=== PATIENT | female | born 1980 | race Two or more races ===

== ENCOUNTER 2024-09-19 08:30 | Emergency (ER) | payer OTHER ==
[~2024-09-19] VITALS: Ht 170.2 cm; Wt 85.3 kg
[2024-09-19] MEDS ORDERED: COZAAR25 MG PO (09:05)
[2024-09-19] MEDS ORDERED: SYNJARDY 12.5-1 EACH PO (09:05)
[2024-09-19] MEDS ORDERED: ROSUVASTATIN CA10 MG PO (09:05)
[2024-09-19 10:25] LABS: BASO % 0.3 % (0.1-1.2); EOS # 0.03 (0.04-0.54); EOS % 0.1 % (0.7-7.0); HEMOGLOBIN 14.8 g/dL (11.2-15.7); LYMPH # 1.35 (1.18-3.74); LYMPH % 4.9 % (19.3-53.1); MEAN CORPUSCULAR HEMOGLOBIN 29.3 pg (25.6-32.2); MONO % 8.7 % (4.7-12.5); NEUT # 23.56 (1.56-6.13); NEUT % 85.3 % (34.0-71.1); PLATELET COUNT 415 K/uL (163-369); RED BLOOD COUNT 5.05 M/uL (3.93-5.22); RED CELL DISTRIBUTION WIDTH 13.6 % (11.6-14.4)
[2024-09-19 11:34] LABS: COVID-19 AG NEGATIVE (NEGATIVE); INFLUENZA A AG NEGATIVE (NEGATIVE)
[2024-09-19] MEDS ORDERED: CEFTRIAXONE SODIUM 2,000 MG VIAL IV ONE (13:00)
[2024-09-19] MEDS ORDERED: CEFTRIAXONE SODIUM 2,000 MG VIAL ONE (13:02)
[2024-09-19] MEDS ORDERED: AMOX-CLAV 875-1 EACH PO (14:39)
[2024-09-19 16:15] LABS: ALBUMIN 3.7 gm/dL (3.4-5.0); BILIRUBIN TOTAL 0.72 mg/dL (0.3-1.2); CALCIUM 9.3 mg/dL (8.5-10.1); CREATININE SERUM 0.86 mg/dL (0.55-1.02); GFR 71.68; POTASSIUM 4.23 mEq/L (3.5-5.1); TOTAL PROTEIN 8.7 gm/dL (6.4-8.2)
== END 2024-09-19 18:15 | disposition home or self-care (01) ==
LOC: ER 08:44
PROVIDERS: Preventive Medicine Public Health & General Preventive Medicine
DX: J02.8 Acute pharyngitis due to other specified organisms (principal); B96.89 Other specified bacterial agents as the cause of diseases classified elsewhere; Z20.822 Contact with and (suspected) exposure to COVID-19; I10 Essential (primary) hypertension; E11.9 Type 2 diabetes mellitus without complications; Z79.84 Long term (current) use of oral hypoglycemic drugs
CPT/HCPCS: 36415; 70491; Q9965